=== PATIENT | male | born 1950 | race Caucasian/White ===

== ENCOUNTER 2017-05-26 12:49 | Emergency (ER) | payer MEDICARE ==
[~2017-05-26] VITALS: Ht 175.3 cm; Wt 83.9 kg
== END 2017-05-26 14:21 | disposition home or self-care (01) ==
LOC: ER 12:49
DX: S93.401A Sprain of unspecified ligament of right ankle, initial encounter (principal); S93.601A Unspecified sprain of right foot, initial encounter; Z88.0 Allergy status to penicillin; W22.8XXA Striking against or struck by other objects, initial encounter
CPT/HCPCS: 73610; 73630; 99283

== ENCOUNTER 2019-05-30 20:36 | Emergency (ER) | payer MEDICARE ==
[~2019-05-30] VITALS: Ht 175.3 cm; Wt 83.9 kg
== END 2019-05-30 21:15 | disposition left against medical advice (07) ==
LOC: ER 20:36
DX: Z53.21 Procedure and treatment not carried out due to patient leaving prior to being seen by health care provider (principal)
CPT/HCPCS: 73130; 99283-25

== ENCOUNTER 2021-05-02 11:57 | Day surgery (SDC) | payer OTHER, MEDICARE ==
[~2021-05-02 11:57] MED LIST: ATOR80 PO; HYDR1TAB94 PO; LATA.005SO BOTHEYES; TIMO.5OPSO BOTHEYES
[2021-05-02] MEDS ORDERED: Aspir 8181 MG PO (14:30)
[2021-05-02] MEDS ORDERED: CARBOXYMETHYLCE15 ML RIGHTEYE (14:31)
--- NOTE | 2021-05-02 17:00 | NUR ---
PT MONITORED Q 15 MINUTES DURING AND FOR ONE HOUR AFTER INFUSION COMPLETE. VSS. PT VOICES NO REQUESTS OR ANY S/S OF RXN. PT DISCHARGE, AMBULATORY WITH STEADY GAIT TO PRIVATE VEHICLE.
== END 2021-05-02 16:59 | disposition home or self-care (01) ==
LOC: ATC 11:57
DX: U07.1 COVID-19 (principal); E78.2 Mixed hyperlipidemia
CPT/HCPCS: M0247

== ENCOUNTER 2022-02-13 07:23 | Emergency (ER) | payer OTHER ==
[~2022-02-13] VITALS: Ht 180.3 cm; Wt 83.9 kg
[~2022-02-13 07:23] MED LIST changes: +Aspir 8181 MG PO; +CARBOXYMETHYLCE15 ML RIGHTEYE
[2022-02-13 08:01] LABS: BASOPHILS ABSOLUTE AUTO 0.03 K/mm3 (0.00-0.23); BASOPHILS PERCENT AUTO 1 % (0-2); EOSINOPHILS ABSOLUTE AUTO 0.06 K/mm3 (0.00-0.68); EOSINOPHILS PERCENT AUTO 1 % (0-6); Hemoglobin 12.9 g/dL (13.5-17.5); IMMATURE GRAN ABSOLUTE AUTO 0.01 K/mm3 (0.00-0.10); IMMATURE GRAN PERCENT AUTO 0 % (0-1); LYMPHOCYTES ABSOLUTE AUTO 1.07 K/mm3 (0.84-5.20); LYMPHOCYTES PERCENT AUTO 23 % (21-46); MONOCYTES PERCENT AUTO 11 % (4-13); Mean Corpuscular HGB 32.8 pg (26.0-34.0); Mean Corpuscular HGB Conc 33.9 g/dL (31.5-36.5); Mean Corpuscular Volume 97 fL (80-100); Mean Platelet Volume 10.7 fL (9.1-12.4); NEUTROPHILS ABSOLUTE AUTO 2.97 K/mm3 (1.96-9.15); NEUTROPHILS PERCENT AUTO 64 % (41-73); Platelet Count 145 K/mm3 (150-400); RDW Coefficient Variation 11.7 % (11.7-14.2); RDW Standard Deviation 41.7 fL (35.1-46.3); Red Blood Cell Count 3.93 M/mm3 (4.30-5.90); White Blood Cell Count 4.64 K/mm3 (4.00-11.30)
[2022-02-13 08:26] LABS: Albumin, Blood 3.1 g/dL (3.4-5.0); Albumin/Globulin Ratio 1.1 (0.8-1.8); Bilirubin, Total 0.5 mg/dL (0.1-1.0); Bun/Creatinine Ratio 21.9 (12.0-20.0); Calcium, Blood 8.1 mg/dL (8.5-10.1); Creatinine, Blood 1.14 mg/dL (0.60-1.20); Globulin, Blood 2.8 g/dL (2.2-4.0); Total Protein, Blood 5.9 g/dL (6.4-8.2)
[2022-02-13] MEDS ORDERED: MOTION RELIEF25 MG PO (10:44)
== END 2022-02-13 11:00 | disposition home or self-care (01) ==
LOC: ER 07:23
PROVIDERS: Emergency Medicine
DX: H81.399 Other peripheral vertigo, unspecified ear (principal)
CPT/HCPCS: 70450; 80053; 84484; 85025; 93005; 93010; A9270; J0780; J7030

== ENCOUNTER 2022-04-26 10:15 | Inpatient (IN) | payer OTHER ==
[~2022-04-26] VITALS: Ht 177.8 cm; Wt 86.2 kg
[~2022-04-26 10:15] MED LIST changes: +MOTION RELIEF25 MG PO
[2022-04-26 11:04] LABS: BASOPHILS ABSOLUTE AUTO 0.03 K/mm3 (0.00-0.23); BASOPHILS PERCENT AUTO 0 % (0-2); EOSINOPHILS ABSOLUTE AUTO 0.03 K/mm3 (0.00-0.68); EOSINOPHILS PERCENT AUTO 0 % (0-6); Hematocrit 43.1 % (37.0-53.0); Hemoglobin 15.3 g/dL (13.5-17.5); IMMATURE GRAN ABSOLUTE AUTO 0.02 K/mm3 (0.00-0.10); IMMATURE GRAN PERCENT AUTO 0 % (0-1); LYMPHOCYTES ABSOLUTE AUTO 1.11 K/mm3 (0.84-5.20); LYMPHOCYTES PERCENT AUTO 12 % (21-46); MONOCYTES ABSOLUTE AUTO 0.81 K/mm3 (0.16-1.47); MONOCYTES PERCENT AUTO 9 % (4-13); Mean Corpuscular HGB 33.3 pg (26.0-34.0); Mean Corpuscular HGB Conc 35.5 g/dL (31.5-36.5); Mean Corpuscular Volume 94 fL (80-100); Mean Platelet Volume 11.1 fL (9.1-12.4); NEUTROPHILS ABSOLUTE AUTO 7.41 K/mm3 (1.96-9.15); NEUTROPHILS PERCENT AUTO 79 % (41-73); Platelet Count 202 K/mm3 (150-400); RDW Coefficient Variation 11.8 % (11.7-14.2); RDW Standard Deviation 40.7 fL (35.1-46.3); Red Blood Cell Count 4.59 M/mm3 (4.30-5.90); White Blood Cell Count 9.41 K/mm3 (4.00-11.30)
[2022-04-26 11:24] LABS: Albumin, Blood 4.1 g/dL (3.4-5.0); Albumin/Globulin Ratio 1.1 (0.8-1.8); Bilirubin, Total 0.6 mg/dL (0.1-1.0); Bun/Creatinine Ratio 21.1 (12.0-20.0); Creatinine, Blood 1.23 mg/dL (0.60-1.20); Globulin, Blood 3.7 g/dL (2.2-4.0); Potassium, Blood 4.3 mmol/L (3.5-5.5); Total Protein, Blood 7.8 g/dL (6.4-8.2)
[2022-04-26] MEDS ORDERED: ZIOPTAN 0.00151 EACH BOTHEYES (14:40)
[2022-04-26 15:01] LABS: Source, Urine Clean Catch
[2022-04-26 15:14] LABS: Appearance, Urine Clear (Clear); Bilirubin, Urine Neg (Neg); Blood, Urine Neg (Neg); Color, Urine Yellow (P-Yellow); Glucose Qualitative, Urine Neg (Neg); Ketones, Urine Neg (Neg); Leukocyte Esterase, Urine Neg (Neg); Nitrite, Urine Neg (Neg); Protein, Urine Neg (Neg); Urobilinogen, Urine NORM (Normal)
--- NOTE | 2022-04-26 16:39 | NUR ---
PATIENT ARRIVED FROM ER TODAY AT 1610. PATIENT IS A&OX4. VS ARE WNL AND IS ON RA. PATIENT DENIES PAIN OR NAUSEA AT THIS TIME. HE WAS ABLE TO AMBULATE FROM THE GURNEY TO THE BED INDEP. HE HAS AN NG TUBE PLACED IN THE RIGHT NARE THAT IS ON LOW INTERMITTENT SUCTION. OUTPUT FROM NG TUBE IS BROWN COLORED. ABD IS SOFT TO TOUCH AND HAS HYPERACTIVE BOWEL TONES. IV IS WNL AND HAS FLUIDS RUNNING. PATIENT IS LAYING IN BED WITH CALL LIGHT IN REACH.
[2022-04-27 04:37] LABS: Bun/Creatinine Ratio 18.3 (12.0-20.0); Calcium, Blood 8.6 mg/dL (8.5-10.1); Creatinine, Blood 1.2 mg/dL (0.60-1.20); Potassium, Blood 3.9 mmol/L (3.5-5.5)
--- NOTE | 2022-04-27 06:02 | NUR ---
Patient AAOX4, slept well overnight. Bowel sounds active, NG to LIS output 200 for the night, brown mucousy output noted. No questions at this time.
--- NOTE | 2022-04-27 08:37 | NUR ---
NGT CLAMPED AT 0800 SO PATIENT COULD WALK AROUND, HE REPORTS PASSING FLATUS OVER NIGHT. DENIES ABD PAIN OR NAUSEA. PER DR. RAMOS ADVANCE TO CLEAR LIQUID DIET AND OKAY TO KEEP NGT CLAMPED AT THIS TIME.
--- NOTE | 2022-04-27 16:32 | NUR ---
SHIFT SUMMARY SMALL BOWEL OBSTRUCTION PT HAS HAD NGT CLAMPED SINCE 0800, HE HAS DENIED PAIN OR NAUSEA. AMBULATING FREQUENTLY IN THE HALLWAYS. TOLERATING DIET WELL, ADVANCED TO [facility] FOR DINNER. PT LOOKING FORWARD TO GOING HOME TOMORROW AND HAVING NGT REMOVED
--- NOTE | 2022-04-27 17:46 | NUR ---
SPOKE WITH DR. RAMOS, PT PASSING GAS AND HAS HAD LARGE BOWEL MOVEMENT. PT ASKED IF NGT COULD BE REMOVED AT THIS TIME. DR. RAMOS OKAY WITH REMOVAL. PT TOLERATED REMOVAL WELL AND IS EXCITED TO BE FREE FROM NGT AT THIS TIME.
--- NOTE | 2022-04-28 05:20 | NUR ---
Patient slept well overnight, denies nausea and vomitting. Bowel sounds present. Patient denies any pain. Patient tolerated dinner and intake. Drinking well, independent in room. No questions or concerns at this time.
[2022-04-28 07:28] LABS: BASOPHILS ABSOLUTE AUTO 0.03 K/mm3 (0.00-0.23); BASOPHILS PERCENT AUTO 0 % (0-2); EOSINOPHILS PERCENT AUTO 1 % (0-6); Hematocrit 39.4 % (37.0-53.0); Hemoglobin 13.7 g/dL (13.5-17.5); IMMATURE GRAN ABSOLUTE AUTO 0.01 K/mm3 (0.00-0.10); IMMATURE GRAN PERCENT AUTO 0 % (0-1); LYMPHOCYTES ABSOLUTE AUTO 1.28 K/mm3 (0.84-5.20); LYMPHOCYTES PERCENT AUTO 17 % (21-46); MONOCYTES ABSOLUTE AUTO 1.16 K/mm3 (0.16-1.47); MONOCYTES PERCENT AUTO 15 % (4-13); Mean Corpuscular HGB 33.1 pg (26.0-34.0); Mean Corpuscular HGB Conc 34.8 g/dL (31.5-36.5); Mean Corpuscular Volume 95 fL (80-100); NEUTROPHILS ABSOLUTE AUTO 4.97 K/mm3 (1.96-9.15); NEUTROPHILS PERCENT AUTO 66 % (41-73); Platelet Count 161 K/mm3 (150-400); RDW Coefficient Variation 11.8 % (11.7-14.2); RDW Standard Deviation 40.8 fL (35.1-46.3); Red Blood Cell Count 4.14 M/mm3 (4.30-5.90); White Blood Cell Count 7.55 K/mm3 (4.00-11.30)
[2022-04-28 07:43] LABS: Bun/Creatinine Ratio 15.8 (12.0-20.0); Calcium, Blood 8.8 mg/dL (8.5-10.1); Creatinine, Blood 1.2 mg/dL (0.60-1.20); Potassium, Blood 3.9 mmol/L (3.5-5.5)
[2022-04-28] MEDS ORDERED: ZIOPTAN 0.00151 EACH BOTHEYES (10:36)
--- NOTE | 2022-04-28 10:59 | NUR ---
DISCHARGE PT PROVIDED WITH WRITTEN AND VERBAL DISCHARGE INSTRUCTIONS; HE REPORTED UNDERSTANDING. PT STATED HE HAD A BM YESTERDAY AND HAS BEEN ABLE TO PASS FLATUS. PT TOLERATED HIS BREAKFAST. PT AMBULATED INDEPENDENTLY IN HALWAYS. PT DISCHARGED AT 1059.
== END 2022-04-28 10:59 | disposition home or self-care (01) | DRG 390 ==
LOC: ER 10:15 → SURS 14:44 → ER 15:59 → SURS 16:28
PROVIDERS: Family Medicine Adult Medicine; Physician Assistant; ADMIT Internal Medicine
PROC: 0DH67UZ Insertion of Feeding Device into Stomach, Via Natural or Artificial Opening (ICD-10-PCS; principal; 2022-04-26)
DX: K91.30 Postprocedural intestinal obstruction, unspecified as to partial versus complete (principal); E78.5 Hyperlipidemia, unspecified; H40.9 Unspecified glaucoma; Z90.49 Acquired absence of other specified parts of digestive tract; Z88.0 Allergy status to penicillin; Z88.8 Allergy status to other drugs, medicaments and biological substances; Z79.02 Long term (current) use of antithrombotics/antiplatelets; Z79.82 Long term (current) use of aspirin; Z79.891 Long term (current) use of opiate analgesic; Z79.899 Other long term (current) drug therapy; Z98.890 Other specified postprocedural states
CPT/HCPCS: 36415; 74018; 74177; 80048; 80053; 81003; 83690; 85025; 96374-59; 99285-25; A9270; J1170; J2765; J7120; Q9967

== ENCOUNTER 2024-07-08 17:51 | Emergency (ER) | payer OTHER ==
[~2024-07-08] VITALS: Ht 177.8 cm; Wt 83.9 kg
[~2024-07-08 17:51] MED LIST changes: +ZIOPTAN 0.00151 EACH BOTHEYES
[2024-07-08] MEDS ORDERED: Ketorolac Tromethamine 30mg Vial IM ONE (18:10)
[2024-07-08] MEDS ORDERED: Lidocaine 4% 1 Patch TOP ONE (18:10)
[2024-07-08] MEDS ORDERED: OxyCODONE HCL 5 MG TAB PO ONE (18:10)
[2024-07-08] MEDS ORDERED: HYDROmorphone HCl/Pf 1MG SYR IV ONE (19:40)
[2024-07-08] MEDS ORDERED: Ondansetron HCl 2 MG / ML 2ML Vial IV ONE (19:45)
[2024-07-08 23:42] VITALS: BP 119/61
[2024-07-08] MEDS ORDERED: RX Prepack 2 Tabs Ondansetron ODT 4MG UD ONE (23:45)
[2024-07-08] MEDS ORDERED: RX Prepack 6 Tabs Oxycodone 5mg UD ONE (23:45)
== END 2024-07-09 | disposition home or self-care (01) ==
LOC: ER 17:51
DX: S39.012A Strain of muscle, fascia and tendon of lower back, initial encounter (principal); Z88.5 Allergy status to narcotic agent; Z88.0 Allergy status to penicillin; Z79.82 Long term (current) use of aspirin; Z79.899 Other long term (current) drug therapy; W18.30XA Fall on same level, unspecified, initial encounter
CPT/HCPCS: 74177; 96372-59; 96374-59; 96375; 99284-25; A9270; J1171; J1885; J2405; Q9967